=== PATIENT | female | born 2000 | race Hispanic/Latino ===

== ENCOUNTER → 2018-10-02 | Outpatient (REF) | payer OTHER ==
[2018-10-03 13:27] LABS: CHLAMYDIA DNA AMPLIFICATION NEGATIVE (NEGATIVE); GC DNA AMPLIFICATION NEGATIVE (NEGATIVE)
== END ==
LOC: M SFHCLERA 19:33
PROVIDERS: ATTEND Nurse Practitioner Family
DX: Z34.80 Encounter for supervision of other normal pregnancy, unspecified trimester (principal); Z3A.01 Less than 8 weeks gestation of pregnancy
CPT/HCPCS: 81002; 81025; 87088; 87186; 87661; G0463

== ENCOUNTER 2018-10-05 02:20 | Emergency (ER) | payer OTHER ==
[~2018-10-05] VITALS: Ht 152.4 cm; Wt 60.5 kg
[2018-10-05 03:27] LABS: BASO % 0.7 % (0.0-1.0); EOS # 0.1 10^3/uL (0.0-0.50); EOS % 1.3 % (0.0-3.0); HEMATOCRIT 42.3 % (36.0-47.0); HEMOGLOBIN 14.6 g/dl (12.0-15.5); LYMPH # 1.5 10^3/uL (1.5-6.5); LYMPH % 23.8 % (24.0-44.0); MEAN CORPUSCULAR HEMOGLOBIN 30.2 pg (27.0-33.0); MEAN CORPUSCULAR HGB CONC 34.5 g/dl (32.0-36.5); MEAN CORPUSCULAR VOLUME 87.4 fl (80.0-96.0); MONO # 0.9 10^3/uL (0.0-0.8); NEUTROPHILS # 3.6 10^3/uL (1.8-7.7); NEUTROPHILS % 59.7 % (36.0-66.0); PLATELET COUNT, AUTOMATED 227 10^3/uL (150-450); RED BLOOD COUNT 4.84 10^6/uL (4.00-5.40); WHITE BLOOD COUNT 6.1 10^3/uL (4.0-10.0)
[2018-10-05] MEDS ORDERED: METOCLOPRAMIDE INJ 10MG/2ML VIAL (J2765) IV ONE (04:00)
[2018-10-05] MEDS ORDERED: NS 1,000 ML IV ONE (04:00)
[2018-10-05 04:23] LABS: BLOOD UREA NITROGEN 12 MG/DL (7-18); CALCIUM LEVEL 9.1 MG/DL (8.5-10.1); CARBON DIOXIDE LEVEL 23 MEQ/L (21-32); CHLORIDE LEVEL 104 MEQ/L (98-107); CREATININE FOR GFR 0.61 MG/DL (0.55-1.30); GLUCOSE, FASTING 88 MG/DL (70-100); HCG, SERUM QUANTITATIVE 80896 MIU/ML; POTASSIUM SERUM 3.9 MEQ/L (3.5-5.1); SODIUM LEVEL 135 MEQ/L (136-145)
--- NOTE | 2018-10-05 05:56 | REPVR ---
EXAM: US First Trimester, Transabdominal EXAM DATE/TIME: 10/05/2018 5:18 AM CLINICAL HISTORY: 18 years old, female; Signs and symptoms; Lmp or gestational age (in weeks): 6; Antepartum complications; Bleeding; ; Additional info: Vaginal bleeding TECHNIQUE: Imaging protocol: Real-time transabdominal obstetrical ultrasound of the maternal pelvis and a first trimester , less than 14 weeks 0 days, with image documentation. COMPARISON: No relevant prior studies available. FINDINGS: GESTATION: Gestation: Single living intrauterine . There is visualization of the intrauterine gestational sac, yolk sac and pole. Heart rate: heart rate 116 beats per minute. Placenta: No subchorionic bleed. Amniotic fluid: Amniotic and chorionic fluid are normal for gestational age. BIOMETRY: Estimated gestational age: Ultrasound gestational age 6 weeks 1 day. Winn-Rump length: Winn rump length 0.5 cm. Estimated due date: LOLA 05/30/2019. MATERNAL: Uterus: Unremarkable. Cervix: Unremarkable. Right adnexa: Unremarkable. Left adnexa: Unremarkable. Intraperitoneal: No intraperitoneal free fluid. IMPRESSION: Single living IUP with ultrasound gestational age 6 weeks 1 day. LOLA 05/30/2019. Electronically signed by: Phan Nickerson On 10/05/2018 05:56:05 AM
[2018-10-05 06:08] LABS: CHLAMYDIA DNA AMPLIFICATION NEGATIVE (NEGATIVE); GC DNA AMPLIFICATION NEGATIVE (NEGATIVE)
[2018-10-05] MEDS ORDERED: NITROFURANTOIN (MACROBID) 100 MG CAP PO ONE (06:15)
[2018-10-05 06:21] VITALS: BP 108/64
== END 2018-10-05 06:29 | disposition home or self-care (01) ==
LOC: M ED 02:20
DX: O03.9 Complete or unspecified spontaneous abortion without complication (principal); N80.9 Endometriosis, unspecified; Z88.0 Allergy status to penicillin; Z3A.01 Less than 8 weeks gestation of pregnancy
CPT/HCPCS: 76801; 80048; 81001; 84702; 85025; 86850; 86900; 86901; 87088; 87186; 87210; 87491; 87591; 96361; 96374; 99284; J2765

== ENCOUNTER 2019-02-22 09:59 | Outpatient (CLI) | payer OTHER ==
[~2019-02-22] VITALS: Ht 154.9 cm; Wt 64.8 kg
[2019-02-22 10:20] VITALS: BP 110/65
--- NOTE | 2019-02-22 10:55 | IPNPDOC ---
Text Note Date of Service The patient was seen on 02/22/19. NOTE patient is 18 yo G1 @ 26+1wks gestation presents with concern for fall last night at 1999. patient slipped on carpet and fell on her left bottom. having pain on her left hip. denies cramping/vb/patterson of fluids. +FM. Vitals: reviewed, normal nad abd; nd, soft, nt back: mild tenderness of lower left back, no bruising noted. fhr: 140's toco: irritability a/p patient s/p > 12hrs of fall, no injury to abdomen. normal evaluation today s/p fall. return precautions given. f/u in clinic a scheduled. DO SHAHRAM Muniz LUAT N. DO Feb 22, 2019 10:55
== END 2019-02-22 11:05 | disposition home or self-care (01) ==
LOC: M LDO 09:59
PROVIDERS: ATTEND Obstetrics & Gynecology
DX: O9A.212 Injury, poisoning and certain other consequences of external causes complicating pregnancy, second trimester (principal); M25.552 Pain in left hip; W01.0XXA Fall on same level from slipping, tripping and stumbling without subsequent striking against object, initial encounter; Z3A.26 26 weeks gestation of pregnancy
CPT/HCPCS: G0378; G0463

== ENCOUNTER 2019-05-24 18:39 | Inpatient (IN) | payer OTHER ==
[2019-05-24] VITALS (25 sets, daily range): BP systolic 95–175; BP diastolic 42–112
[~2019-05-24] VITALS: Ht 152.4 cm; Wt 71.9 kg
[2019-05-24] MEDS ORDERED: LACTATED RINGER'S 1000 ML IV ONE (19:30)
[2019-05-24 19:47] LABS: HEMATOCRIT 40.3 % (36.0-47.0); HEMOGLOBIN 13.3 g/dl (12.0-15.5); MEAN CORPUSCULAR HEMOGLOBIN 29.1 pg (27.0-33.0); MEAN CORPUSCULAR VOLUME 88.2 fl (80.0-96.0); PLATELET COUNT, AUTOMATED 243 10^3/uL (150-450); RED BLOOD COUNT 4.57 10^6/uL (4.00-5.40); WHITE BLOOD COUNT 9.3 10^3/uL (4.0-10.0)
[2019-05-24] MEDS ORDERED: FENTANYL 2MCG/ML ROPIVACAINE 0.2% IN 0.9% NACL 100ML IVBAG As Ordered ONE (19:52)
[2019-05-24] MEDS ORDERED: OXYTOCIN 30 UNITS IN 0.9% NaCl 500ML IV BAG (J2590) As Ordered ONE (20:07)
[2019-05-24] MEDS ORDERED: LR 1,000 ML IV SCH ×2 (20:30→23:27)
--- NOTE | 2019-05-24 20:51 | HPE ---
DATE OF ADMISSION: 05/24/2019 A 18-year-old 1, para 0, last menstrual period (LMP) 08/18/2018, estimated date of confinement (EDC) 05/30/2019 at 39 and 2 weeks of gestation with contractions and moderate pain, spontaneous rupture of membranes, clear liquor, GBS negative. LABORATORY DATA: O positive, HIV negative, hepatitis negative, RPR negative, rubella immune, Varicella immune. Urine negative. Gonorrhea and chlamydia are negative. One-hour glucose is 127. GBS is negative. Blood pressure 122/64, respirations 16, pulse 150, temperature 97.6. Symphysis fundus height is 40, vertex, occiput anterior (OA), 100% effaced, 5-6 cm, -2 station. No moulding. Clear liquor is noted. She has a category 1 strip. Normocephalic, atraumatic. Neck: Full range of motion. Pupils equal and reactive to light. Chest is clear bilateral. No wheezes or rhonchi. No costovertebral angle (CVA) tenderness. Four-quadrant bowel sounds are noted. She has no rashes, lesions, or pruritus. No arthralgia or myalgia. No complaint of joint pain. No complaint of cough, wheezes, shortness of breath, or dyspnea on exertion. No frequency. No bruising. No bleeding. Neurologic complete. No incontinency or urgency. No nausea, vomiting, diarrhea, or constipation. No diabetic issues. No sexually transmitted diseases (STDs). No abnormal Pap smears. She is 18 years old. PAST MEDICAL HISTORY: Unremarkable. PAST SURGICAL HISTORY: She has had three laparoscopies for endometriosis, although we cannot find any of the operative procedures or findings. FAMILY HISTORY: Noncontributory. She does not smoke, drink, or abuse drugs. She is to a soldier. No domestic violence. ALLERGIES: Has no known allergies. In between contractions we talked about the consent for vaginal delivery, which is the baby delivering through the vagina with possible assistance of forceps or vacuum devices if needed for maternal or indications. These are devices assist with vaginal delivery when normal pushing efforts cannot achieve delivery on their own or when delivery is needed in emergency for the baby's wellbeing. Medications may require to induce or augment labor in order to achieve vaginal delivery. An episiotomy may or may not be required to help the baby deliver vaginally. May also require repair of any lacerations or tears of the vagina or vulva that are caused by delivery. In some cases emergencies can arise, and emergency section has to be performed. The provider will discuss the reasons for section before proceeding. These are only done for or maternal indications, and it is possibly safer for the mother and baby than continuing labor. Risks of vaginal delivery include, not limited to, bleeding, infection, injury to vagina, pelvic structures, injury to baby, damage to the uterus, reaction to anesthesia, uterine rupture, risk of hysterectomy for life-threatening bleeding issues, or . Medications use augment to induce labor can lead to possible , hysterectomy, hemorrhage, heart rate abnormalities, need for emergency section, increased risk of perianal and vaginal lacerations, risks of injury to bowel or bladder, possibility of residual bladder incontinence, and the risk of injury to baby with bruising, scratches or hematomas to the head, or intracranial bleed. The patient verbalized and expressed understanding. Is actively requesting an epidural. A 20-minute discussion. All questions answered..
[2019-05-24] MEDS ORDERED: ePHEDrine SULFATE 25 MG/5 ML(5MG/ML) SYRINGE As Ordered ONE (21:34)
[2019-05-24] MEDS ORDERED: ONDANSETRON 4MG/2ML VIAL (J2405) IV PRN (22:00)
[2019-05-24] MEDS ORDERED: EPIDURAL COMMENT XX SCH (22:00)
[2019-05-24] MEDS ORDERED: diphenhydrAMINE INJ 50MG/ML VIAL (J1200) IV PRN (22:00)
[2019-05-24] MEDS ORDERED: FENTANYL/ROPIVACAINE/NACL BAG 100 ML EPIDURAL SCH (22:00)
[2019-05-24] MEDS ORDERED: EPIDURAL/PCA KEYS XX PRN (22:00)
[2019-05-24] MEDS ORDERED: NALOXONE INJ 0.4 MG/1 ML VIAL (J2310) IV PRN (22:00)
[2019-05-24] MEDS ORDERED: REFRIGERATOR IV KEYS XX PRN (22:00)
[2019-05-24] MEDS ORDERED: ePHEDrine SULFATE 25 MG/5 ML(5MG/ML) SYRINGE IV PRN (22:00)
[2019-05-24 23:16] LABS: CORD GAS ABE A -5.3; CORD GAS ABE V -4.3; CORD GAS HCO3 A 21.1 MEQ/L; CORD GAS HCO3 V 21.9 MEQ/L; CORD GAS O2 SAT A 57.1 %; CORD GAS O2 SAT V 70.9 %; CORD GAS PCO2 A 44.2 mmHg; CORD GAS PCO2 V 44.1 mmHg; CORD GAS PH A 7.296 UNITS; CORD GAS PH V 7.314 UNITS; CORD GAS PO2 V 31.3 mmHg; CORD GAS SBC A 19.2 MEQ/L; CORD GAS SBC V 20.3 MEQ/L; CORD GAS TCO2 A 22.4 MEQ/L; CORD GAS TCO2 V 23.3 MEQ/L
[2019-05-24] MEDS ORDERED: OXYTOCIN DRIP 30 UNITS in IV 1 EA IV SCH (23:27)
[2019-05-24] MEDS ORDERED: IBUPROFEN 600 MG TAB PO PRN (23:30)
[2019-05-24] MEDS ORDERED: OXYTOCIN INJ 10 UNITS/ML VIAL (J2590) IV ONE (23:30)
[2019-05-24] MEDS ORDERED: DOCUSATE SODIUM 100 MG CAP PO PRN (23:30)
[2019-05-24] MEDS ORDERED: DIBUCAINE 1% OINTMENT 30GM TOP PRN (23:30)
[2019-05-24] MEDS ORDERED: MOM 30ML SUSPENSION UDC PO PRN (23:30)
[2019-05-24] MEDS ORDERED: MEASLES,MUMPS,RUBELLA VACCINE INJ (MMR-II) (90707) SC SCH (23:30)
[2019-05-24] MEDS ORDERED: ACETAMINOPHEN TAB 650MG DOSE (2X325MG) PO PRN (23:30)
[2019-05-24] MEDS ORDERED: METHYLERGONOVINE MALEATE 0.2 MG TAB PO PRN (23:30)
[2019-05-24] MEDS ORDERED: RHOGAM 300 MCG (1500 IU) INJ (J2790) IM SCH (23:30)
[2019-05-24] MEDS ORDERED: ANUSOL HC CREAM 30GM TOP PRN (23:30)
[2019-05-24] MEDS ORDERED: medroxyPROGESTERone ACET IM SUSP 150 MG/ML VIAL (J1050) IM SCH (23:45)
[2019-05-25 00:11] VITALS: BP 94/54
--- NOTE | 2019-05-25 00:17 | DN ---
DATE: 05/24/2019 This lady is a 1, para 0, admitted at 39 and 2 with spontaneous labor at 5-6 cm with spontaneous rupture of membranes. She had an epidural in place, had a spontaneous vaginal delivery, male , 6 pounds 1 ounce, 2750 grams, scores of 9 and 9 at one and five minutes respectively. Cord times one, loose. Arterial pH 7.29, base excess -5.3, venous pH 7.31, base excess -4.3. Placenta delivered spontaneously thereafter, three-vessel cord, membranes and tissues intact. She sustained a first-degree tear and a few labial tears. The midline laceration was oversewn in the usual fashion with a #2-[address] The uterus did contract well on Pitocin, anterior, posterior lateral sphincter was tight. No evidence of external or internal lacerations that required repair. The patient and baby tolerated procedure well.
[2019-05-25 01:45] VITALS: BP 107/60
[2019-05-25] MEDS: IBUPROFEN 800 MG TAB PO PRN ×2 (02:26→23:01)
[2019-05-25 03:10] VITALS: BP 119/60
[2019-05-25 06:06] VITALS: BP 119/57
[2019-05-25 07:03] LABS: MEAN CORPUSCULAR HEMOGLOBIN 29.1 pg (27.0-33.0); MEAN CORPUSCULAR HGB CONC 32.6 g/dl (32.0-36.5); PLATELET COUNT, AUTOMATED 183 10^3/uL (150-450); RED BLOOD COUNT 3.82 10^6/uL (4.00-5.40); WHITE BLOOD COUNT 13.6 10^3/uL (4.0-10.0)
[2019-05-25 07:04] LABS: HEMOGLOBIN 11.1 g/dl (12.0-15.5)
--- NOTE | 2019-05-25 07:21 | IPN ---
DATE: 05/25/2019 This lady is a 18-year-old, 1, now para 1, admitted with spontaneous labor and contractions. She had an epidural in place, delivered a live male infant, 6 pounds 1 ounce, 2750 grams, Apgars of 9 and 9 at one and five minutes respectively. Arterial pH 7.29, base excess -5.3; venous pH 7.31, base excess -4.3. She sustained a small first-degree tear which was oversewn in the usual fashion. Today, uterus is two below, lochia is moderate, perineum is healing. Blood pressure 119/57, respirations are 18, pulse 97, and temperature 98.8. Her admitting hemoglobin was 13.3, hematocrit 40.3 and platelets 243. She is presently breast-feeding and doing well, passing gas and voiding. Moderate lochia was noted. We discussed control and she is asking for Depo-Provera, which will be supplied prior to discharge. The rest examination is unremarkable. Normocephalic, atraumatic. Neck: Full range of motion. Pupils equal and reactive to light. Distal pulses symmetric. No evidence of deep vein thrombosis (DVT), pulmonary embolism (PE) or superficial phlebitis. Chest is clear bilaterally at bases. No wheezes or rhonchi. No costovertebral angle (CVA) tenderness. No rashes, lesions or pruritus. No arthralgia or myalgia. No complaint of joint pain. No complaint of cough, wheezes, shortness of breath or dyspnea on exertion. No nausea, vomiting, diarrhea or constipation. No urgency or frequency. In summary, we have a term gestation who delivered a live male , planning on circumcision when the headwaiter/headwaitress has examined the baby.
[2019-05-25] MEDS: ACETAMINOPHEN 500 MG TAB PO PRN ×2 (07:40→14:58)
[2019-05-25] MEDS: PRENATAL VITAMINS CHEWABLE TABLET PO SCH (07:40)
[2019-05-25 18:00] VITALS: BP 112/62
[2019-05-26] MEDS: ACETAMINOPHEN 500 MG TAB PO PRN (05:50)
[2019-05-26 06:00] VITALS: BP 105/65
[2019-05-26] MEDS: PRENATAL VITAMINS CHEWABLE TABLET PO SCH (07:55)
[2019-05-26] MEDS ORDERED: ACET1TAB55 PO (08:19)
[2019-05-26] MEDS ORDERED: IBUP80TA PO (08:19)
--- NOTE | 2019-05-26 08:23 | DS.PDOC ---
Discharge Summary General Date of Admission May 24, 2019 at 19:10 Date of Discharge May, Discharge Summary HOSPITAL COURSE: Ms. Figueroa is a 18 yo G1 now P1 who underwent an uncomplicated on 24May2019 late at night after being admitted for active labor. Her course was unremarkable. On her day of discharge (26May2019) she met all appropriate discharge criteria. She was ambulating, voiding on her own, tolerating a regular diet, had minimal lochia, and minimal pain. DISCHARGE MEDICATIONS: Please see below. ALLERGIES: Please see below. PHYSICAL EXAMINATION ON DISCHARGE: VITAL SIGNS: Please see below. GENERAL: AAOX3, sitting up in bed, pleasant and conversant, NAD ABDOMINAL EXAMINATION: Fundus firm at U-2. No fundal tenderness EXTREMITIES: No edema PSYCHIATRIC EXAMINATION: Affect appropriate LABORATORY DATA: Please see below. ACTIVITY: Pelvic rest for 6 weeks. DIET: Regular DISCHARGE PLAN: Discharge home DISPOSITION: Discharge home on 26May2019. DISCHARGE INSTRUCTIONS: 1. Pelvic rest for 6 weeks. ITEMS TO FOLLOWUP ON ON OUTPATIENT: 1. appointment in 6 weeks. DISCHARGE CONDITION: Stable. TIME SPENT ON DISCHARGE: Greater than 20 minutes. Anna Valenzuela DO Vital Signs/I&Os Vital Signs Date Time Temp Pulse Resp B/P (MAP) Pulse Ox O2 Delivery O2 Flow Rate FiO2 05/26/19 06:00 97.7 78 16 105/65 (78) 96 Room Air Discharge Medications Scheduled PRN Acetaminophen (Acetaminophen) 325 Mg Tablet, 650 MG PO Q4HP PRN for PAIN LEVEL 1-5 Ibuprofen (Ibuprofen) 800 Mg Tablet, 800 MG PO Q8HP PRN for PAIN LEVEL 6-10 Allergies Coded Allergies: amoxicillin (Verified Allergy, Intermediate, rash, 10/05/18) Penicillins (Verified Allergy, Unknown, RASH, 05/24/19) ANNA VALENZUELA DO May 26, 2019 08:23
== END 2019-05-26 12:40 | disposition home or self-care (01) | DRG 807 ==
LOC: M LDO 18:39 → M LDI 19:10 → M OBS 05-25 01:11
PROVIDERS: ADMIT Obstetrics & Gynecology; ATTEND Obstetrics & Gynecology
PROC: 10E0XZZ Delivery of Products of Conception, External Approach (ICD-10-PCS; principal; 2019-05-24)
PROC: 0HQ9XZZ Repair Perineum Skin, External Approach (ICD-10-PCS; 2019-05-24)
DX: O70.0 First degree perineal laceration during delivery (principal); Z37.0 Single live birth; Z3A.39 39 weeks gestation of pregnancy